=== PATIENT | female | born 1970 | race Caucasian/White ===

== ENCOUNTER 2019-09-15 20:58 | Inpatient (IN) | payer OTHER ==
[~2019-09-15] VITALS: Ht 160 cm; Wt 114.3 kg
[~2019-09-15 20:58] MED LIST: ATORVASTATIN CA40 M1 PO; ECO81 PO; LISINOPRIL20 MG PO; METFORMIN HCL500 MG PO
[2019-09-15 21:46] LABS: BASOPHIL % 0.5 % (0-2); PLATELET COUNT 289 x10^3mcL (130-400); RED CELL DISTRIBUTION WIDTH 14.9 % (11.5-14.5)
[2019-09-15 21:56] LABS: CALCIUM 8.7 mg/dL (8.5-10.1); CARBON DIOXIDE 30.6 mmol/L (21-32); CHLORIDE SERUM 103 mmol/L (98-107); CREATININE SERUM 0.7 mg/dL (0.6-1.0); GFR1 > 60 mL/min; GLUCOSE SERUM 111 mg/dL (74-106); SODIUM SERUM 140 mmol/L (136-145)
[2019-09-15 22:04] LABS: ALBUMIN 3.4 g/dL (3.4-5.0); ALKALINE PHOSPHATASE 97 U/L (46-116); ALT/SGPT 72 U/L (14-59); AST/SGOT 45 U/L (15-37); BILIRUBIN TOTAL 0.4 mg/dL (0.20-1.00); LIPASE 108 IU/L (73-393); TOTAL PROTEIN, SERUM 8.3 g/dL (6.4-8.2)
[2019-09-16] VITALS (7 sets, daily range): BP systolic 108–130; BP diastolic 57–79
[2019-09-16] MEDS ORDERED: LOSARTAN POTASS25 M1 PO (00:36)
[2019-09-16 02:23] LABS: UA SPECIFIC GRAVITY <=1.005 (1.005-1.035); microscopic required? YES; urine erythrocyte 1+ (NEGATIVE)
[2019-09-16 02:31] LABS: AMPHETAMINE QUAL UR NONE DETECTED (See below)
[2019-09-16 07:29] LABS: BASOPHIL % 0.5 % (0-2); PLATELET COUNT 251 x10^3mcL (130-400)
[2019-09-16 07:30] LABS: CALCIUM 8.6 mg/dL (8.5-10.1); CARBON DIOXIDE 28.5 mmol/L (21-32); CHLORIDE SERUM 106 mmol/L (98-107); CREATININE SERUM 0.6 mg/dL (0.6-1.0); GFR1 > 60 mL/min; GLUCOSE SERUM 100 mg/dL (74-106); POTASSIUM SERUM 3.6 mmol/L (3.5-5.1); SODIUM SERUM 142 mmol/L (136-145)
[2019-09-16 07:47] LABS: RED CELL DISTRIBUTION WIDTH 14.9 % (11.5-14.5)
[2019-09-17 05:38] VITALS: BP 101/54
[2019-09-17 06:36] LABS: PLATELET COUNT 276 x10^3mcL (130-400)
[2019-09-17 06:53] LABS: CALCIUM 8.4 mg/dL (8.5-10.1); CARBON DIOXIDE 28.3 mmol/L (21-32); CHLORIDE SERUM 104 mmol/L (98-107); CREATININE SERUM 0.7 mg/dL (0.6-1.0); GFR1 > 60 mL/min; GLUCOSE SERUM 125 mg/dL (74-106); PHOSPHOROUS 4.4 mg/dL (2.5-4.9); POTASSIUM SERUM 4.3 mmol/L (3.5-5.1); SODIUM SERUM 141 mmol/L (136-145)
[2019-09-17 07:13] LABS: RED CELL DISTRIBUTION WIDTH 15.3 % (11.5-14.5)
[2019-09-17 07:14] LABS: BASOPHIL % 0 % (0-2)
[2019-09-17 07:21] VITALS: BP 104/61
[2019-09-17 15:54] VITALS: BP 96/46
[2019-09-17 19:10] VITALS: BP 144/88
[2019-09-17 22:13] VITALS: Ht 160 cm; Wt 114.3 kg
[2019-09-18 05:41] VITALS: BP 112/56
[2019-09-18 06:24] LABS: BASOPHIL % 0.3 % (0-2); PLATELET COUNT 252 x10^3mcL (130-400)
[2019-09-18 06:38] LABS: RED CELL DISTRIBUTION WIDTH 15.4 % (11.5-14.5)
[2019-09-18 07:23] VITALS: BP 120/69
[2019-09-18 08:25] LABS: CALCIUM 8.7 mg/dL (8.5-10.1); CARBON DIOXIDE 31.5 mmol/L (21-32); CHLORIDE SERUM 108 mmol/L (98-107); CREATININE SERUM 0.7 mg/dL (0.6-1.0); GFR1 > 60 mL/min; GLUCOSE SERUM 100 mg/dL (74-106); MAGNESIUM 2.1 mg/dL (1.8-2.4); PHOSPHOROUS 4.2 mg/dL (2.5-4.9); POTASSIUM SERUM 4.7 mmol/L (3.5-5.1); SODIUM SERUM 146 mmol/L (136-145)
[2019-09-18 17:54] VITALS: BP 124/76
[2019-09-18 19:20] VITALS: BP 117/63
[2019-09-18 19:24] VITALS: BP 149/87
[2019-09-19 04:37] VITALS: BP 105/55
[2019-09-19 06:40] LABS: CALCIUM 8.7 mg/dL (8.5-10.1); CARBON DIOXIDE 30.3 mmol/L (21-32); CHLORIDE SERUM 106 mmol/L (98-107); CREATININE SERUM 0.7 mg/dL (0.6-1.0); GFR1 > 60 mL/min; GLUCOSE SERUM 93 mg/dL (74-106); POTASSIUM SERUM 4.4 mmol/L (3.5-5.1); SODIUM SERUM 143 mmol/L (136-145)
[2019-09-19 07:05] LABS: BASOPHIL % 0.4 % (0-2); PLATELET COUNT 241 x10^3mcL (130-400)
[2019-09-19 07:56] VITALS: BP 137/78
[2019-09-19 08:12] LABS: RED CELL DISTRIBUTION WIDTH 15.3 % (11.5-14.5)
[2019-09-19 17:01] VITALS: BP 139/84
[2019-09-19 19:20] VITALS: BP 134/80
[2019-09-20 05:12] VITALS: BP 108/55
[2019-09-20 06:57] LABS: BASOPHIL % 0.4 % (0-2); PLATELET COUNT 276 x10^3mcL (130-400)
[2019-09-20 06:59] LABS: CALCIUM 8.5 mg/dL (8.5-10.1); CARBON DIOXIDE 31.8 mmol/L (21-32); CHLORIDE SERUM 102 mmol/L (98-107); CREATININE SERUM 0.7 mg/dL (0.6-1.0); GFR1 > 60 mL/min; GLUCOSE SERUM 89 mg/dL (74-106); POTASSIUM SERUM 3.6 mmol/L (3.5-5.1); SODIUM SERUM 142 mmol/L (136-145)
[2019-09-20 09:00] VITALS: BP 126/74
[2019-09-20] MEDS ORDERED: MOT600 PO (10:43)
[2019-09-20 11:55] VITALS: BP 126/74
== END 2019-09-20 13:20 | disposition home or self-care (01) | DRG 342 ==
LOC: ED 20:58 → MU 09-16 00:43
PROVIDERS: Emergency Medicine; Surgery; ADMIT Internal Medicine
PROC: 0DTJ4ZZ Resection of Appendix, Percutaneous Endoscopic Approach (ICD-10-PCS; principal; 2019-09-16 13:00)
DX: K35.30 Acute appendicitis with localized peritonitis, without perforation or gangrene (principal); Z68.41 Body mass index [BMI] 40.0-44.9, adult; I10 Essential (primary) hypertension; J45.909 Unspecified asthma, uncomplicated; Z87.891 Personal history of nicotine dependence; Z91.010 Allergy to peanuts; Z91.013 Allergy to seafood; Z79.82 Long term (current) use of aspirin; Z79.84 Long term (current) use of oral hypoglycemic drugs; E66.01 Morbid (severe) obesity due to excess calories
CPT/HCPCS: G0378; J0330; J0690; J1170; J2270; J2405; J2543; J2704; J2710; J3010; J3490; J7030; J7050; J7120; J7613; Q0092